=== PATIENT | female | born 1980 | race African-American/Black ===

== ENCOUNTER 2017-09-09 20:27 | Emergency (ER) | payer SELFPAY ==
[2017-09-09 21:06] LABS: #Eosinphils 0.1 thou/uL (0.0-0.7); #Lymphocytes 3.2 thou/uL (1.20-3.40); #Neutrophils 10.5 thou/uL (1.40-6.50); %Basophils 0.2 % (0.0-1.0); %Eosinophils 0.5 % (0.0-10.0); %Lymphocytes 21.5 % (21.0-51.0); %Monocytes 6.4 % (0.0-10.0); %Neutrophils 71.3 % (42.0-75.0); Hemoglobin 11.5 g/dL (12.0-16.0); Mean Corpuscular HGB CONC 32.5 g/dL (32.0-36.0); Mean Corpuscular Hemoglobin 26.2 pg (27.0-31.0); Mean Corpuscular Volume 80.4 fL (78.0-98.0); Mean Platelet Volume 8.7 fL (7.4-10.4); Platelet Count 267 thou/uL (130-400); RBC Distribution Width 13.3 % (11.5-14.5); Red Blood Cell (RBC) Count 4.39 mill/uL (4.20-5.40); White Blood Cell (WBC) Count 14.8 thou/uL (4.8-10.8)
[2017-09-09 21:15] LABS: Bilirubin Negative (Negative); Blood, Urine Small (Negative); Glucose, Urine (Dipstick) Negative (Negative); Leukocyte Negative (Negative); Nitrite Negative (Negative); Protein, Urine (Dipstick) Negative (Neg-Trace); Urobilinogen 0.2 mg/dL (0.2-1.0); pH, Urine 5.5 (5.0-9.0)
[2017-09-09 21:19] LABS: Clarity Clear (Clear)
[2017-09-09 21:20] LABS: Specific Gravity, Urine 1.026 (1.002-1.036)
[2017-09-09 21:22] LABS: Bacteria/HPF None Seen HPF (None Seen); Crystals/HPF 3+ CA OXALATE HPF (Negative); Hyaline Casts/LPF NONE SEEN LPF (0-3 Hyaline); Other Microscopic Description Less than 2 mL rec'd; RBC/HPF 0-3 HPF (0-3); Squamous Epithelial None Seen HPF (0-3); WBC/HPF None Seen HPF (0-3)
[2017-09-09 21:24] LABS: ALT (SGPT) 13 U/L (8-55); AST (SGOT) 13 U/L (5-34); Albumin 4.5 g/dL (3.5-5.0); Alkaline Phosphatase 53 U/L (40-150); Anion Gap 15 mmol/L (10-20); BUN (Urea Nitrogen) 15 mg/dL (7.0-18.7); Bilirubin, Total 0.2 mg/dL (0.2-1.2); Calc. Creatinine Clearance 0 mL/min (70-130); Calcium 10.2 mg/dL (7.8-10.44); Carbon Dioxide 23 mmol/L (22-29); Chloride 106 mmol/L (98-107); Estimated GFR-MDRD 69; Globulin 3.7 g/dL (2.4-3.5); Glucose 119 mg/dL (70-105); Potassium 4.1 mmol/L (3.5-5.1); Protein, Total 8.2 g/dL (6.0-8.3); Sodium 140 mmol/L (136-145)
[2017-09-09] MEDS ORDERED: Ketorolac Tromethamine 30 MG/ML VIAL ONE (22:10)
[2017-09-09] MEDS ORDERED: Ondansetron ODT 4 MG TAB ONE (22:10)
--- NOTE | 2017-09-09 22:30 | CT ---
CT OF ABDOMEN AND PELVIS PERFORMED WITHOUT CONTRAST ENHANCEMENT: 09/09/17 HISTORY: Right flank pain. The lung bases are clear. The liver, spleen and pancreas regions appear unremarkable given limitations of a noncontrast study. Multiple gallstones are present. Right and left adrenal glands and right and left kidneys are normal in size. there are no renal calcu li identified. there is some mild dilatation to the right collecting system and ureter related to a r ight ureterovesical junction calculus measuring 3 to 4 mm. There is no significant periaortic or mese nteric adenopathy. CT OF PELVIS PERFORMED WITHOUT CONTRAST ENHANCEMENT: The appendix is normal. No adenopathy or mass. IMPRESSION: 1. Mild right sided hydronephrosis and hydroureter related to an approximately 4 to 5 mm right u reterovesical junction calculus. 2. Gallstones. POS: [facility]
== END 2017-09-10 01:34 | disposition home or self-care (01) ==
LOC: ERS 20:27
DX: N13.2 Hydronephrosis with renal and ureteral calculous obstruction (principal); K80.20 Calculus of gallbladder without cholecystitis without obstruction
CPT/HCPCS: 36415; 74176; 80053; 81003; 81015; 83605; 85025; 87086; 96361; 96374; J1885; Q0162